=== PATIENT | female | born 1975 | race Caucasian/White ===

== ENCOUNTER 2020-09-29 22:00 | Emergency (ER) | payer BC ==
--- NOTE | 2020-09-29 23:12 | EDM.PDOC ---
ED HPI GENERAL MEDICAL PROBLEM - General Chief Complaint: Respiratory Problem Stated Complaint: COVID+ TROUBLE BREATHING Time Seen by Provider: 09/29/20 23:07 - History of Present Illness INITIAL COMMENTS - FREE TEXT/NARRATIVE: 45-year-old female presents to the emergency room because she is having increasing difficulty breathing and increasing cough. She is Covid positive. Patient was evaluated in the walk-in clinic today found to be Covid positive. They did contact us about monoclonal therapy however this is only available during business hours so she needs to wait until tomorrow for this she understands this. The patient has had worsening cough over the last week. She thought she was getting better but the last couple days she is doing quite a bit worse the cough is more frequent. At times she is noted her home O2 monitor has been in the 80s but this is for brief periods of time. She was maintaining good O2 saturation at the clinic and here in the emergency room she is maintaining good O2 saturation. During my initial evaluation she had a very frequent cough and was maintaining saturations 94 to 95%. She does not have gastrointestinal symptoms hers are predominantly respiratory at this time. His case is complicated as she has non-Hodgkin's lymphoma. She is receiving chemotherapy her most recent dose has been on put on hold because of this illness. Generalized Pain Score (Numeric/FACES): 8 - Related Data Allergies Allergy/AdvReac Type Severity Reaction Status Date / Time No Known Allergies Allergy Verified 09/29/20 22:21 Home Meds: Home Meds Calcium Carbonate [Calcium] 600 mg PO DAILY 09/29/20 [History] Omeprazole Magnesium [Prilosec Otc] 20 mg PO DAILY 09/29/20 [History] hydroCHLOROthiazide [Hydrochlorothiazide] 25 mg PO DAILY 09/29/20 [History] Potassium Chloride [Klor-Con M20] 40 meq PO BID #10 tab.er 09/30/20 [Rx] Past Medical History Cardiovascular History: Reports: Hypertension Gastrointestinal History: Reports: GERD, Other (See Below) Other Gastrointestinal History: gastric sleeve Oncologic (Cancer) History: Reports: Non-Hodgkin's Lymphoma, Other (See Below) Other Oncologic History: has a port - Past Surgical History GI Surgical History: Reports: Cholecystectomy Female Surgical History: Reports: Section Social & Family History - Tobacco Use Tobacco Use Status *Q: Never Tobacco User - Caffeine Use Caffeine Use: Reports: Coffee - Recreational Drug Use Recreational Drug Use: No ED ROS GENERAL - Review of Systems Review Of Systems: See Below Constitutional: Reports: No Symptoms HEENT: Reports: Rhinitis (Mild) Respiratory: Reports: Shortness of Breath, Cough. Denies: Wheezing, Sputum, Hemoptysis Cardiovascular: Denies: Chest Pain, Dyspnea on Exertion, Edema Endocrine: Reports: No Symptoms GI/Abdominal: Reports: No Symptoms. Denies: Abdominal Pain, Nausea, Vomiting : Reports: No Symptoms Musculoskeletal: Reports: Other (Mild achiness) Skin: Reports: No Symptoms Neurological: Reports: No Symptoms Psychiatric: Reports: No Symptoms Hematologic/Lymphatic: Reports: No Symptoms Immunologic: Reports: No Symptoms ED EXAM, GENERAL - Physical Exam Exam: See Below Exam Limited By: No Limitations General Appearance: Alert, No Apparent Distress Eye Exam: Bilateral Eye: Normal Inspection Ears: Normal External Exam, Normal Canal, Hearing Grossly Normal, Normal TMs Nose: Normal Inspection, Normal Mucosa, No Blood Throat/Mouth: Normal Inspection, Normal Lips, Normal Teeth, Normal Gums, Normal Oropharynx, Normal Voice, No Airway Compromise Head: Atraumatic, Normocephalic Neck: Normal Inspection, Supple, Non-Tender, Full Range of Motion. No: Lymphadenopathy (L), Lymphadenopathy (R) Respiratory/Chest: No Respiratory Distress, Lungs Clear, Normal Breath Sounds Cardiovascular: Regular Rate, Rhythm, No Edema, No Murmur GI/Abdominal: Normal Bowel Sounds, Soft, Non-Tender Back Exam: Normal Inspection, Full Range of Motion. No: CVA Tenderness (L), CVA Tenderness (R) Extremities: Normal Inspection, No Pedal Edema Neurological: Alert, Oriented, Normal Cognition Course - Vital Signs Last Recorded V/S: Last Vital Signs Temp 37.9 C 09/29/20 22:17 Pulse 115 H 09/29/20 22:17 Resp 36 H 09/29/20 22:17 BP 108/83 09/29/20 22:17 Pulse Ox 92 L 09/29/20 22:17 - Orders/Labs/Meds Labs: Laboratory Tests 09/30/20 09/30/20 09/30/20 Range/Units 00:30 00:30 00:30 WBC 4.47 (3.98-10.04) K/mm3 RBC 5.03 (3.98-5.22) M/mm3 Hgb 14.0 (11.2-15.7) gm/dl Hct 41.6 (34.1-44.9) % MCV 82.7 (79.4-94.8) fl MCH 27.8 (25.6-32.2) pg MCHC 33.7 (32.2-35.5) g/dl RDW Std Deviation 38.5 (36.4-46.3) fL Plt Count 201 (182-369) K/mm3 MPV 11.3 (9.4-12.3) fl Neutrophils % (Manual) 72 H (40-60) % Band Neutrophils % 3 (0-10) % Lymphocytes % (Manual) 18 L (20-40) % Atypical Lymphs % 0 % Monocytes % (Manual) 7 (2-10) % Eosinophils % (Manual) 0 L (0.7-5.8) % Basophils % (Manual) 0 L (0.1-1.2) Platelet Estimate Adequate RBC Morph Comment Normal D-Dimer, Quantitative 0.49 (0.19-0.50) mg/L Sodium 138 (136-145) mEq/L Potassium 2.5 L (3.5-5.1) mEq/L Chloride 99 (98-107) mEq/L Carbon Dioxide 25 (21-32) mEq/L Anion Gap 16.5 H (5-15) BUN 22 H (7-18) mg/dL Creatinine 1.1 H (0.55-1.02) mg/dL Est Cr Clr Drug Dosing 61.48 mL/min Estimated GFR (MDRD) 53 (>60) mL/min BUN/Creatinine Ratio 20.0 H (14-18) Glucose 108 H (74-106) mg/dL Calcium 8.9 (8.5-10.1) mg/dL Ferritin (8-252) ng/ml Total Bilirubin 0.8 (0.2-1.0) mg/dL AST 32 (15-37) U/L ALT 25 (14-59) U/L Alkaline Phosphatase 95 (46-116) U/L C-Reactive Protein 1.2 H* (<1.0) mg/dL Total Protein 7.5 (6.4-8.2) g/dl Albumin 3.7 (3.4-5.0) g/dl Globulin 3.8 gm/dL Albumin/Globulin Ratio 1.0 (1-2) 09/30/20 Range/Units 00:30 WBC (3.98-10.04) K/mm3 RBC (3.98-5.22) M/mm3 Hgb (11.2-15.7) gm/dl Hct (34.1-44.9) % MCV (79.4-94.8) fl MCH (25.6-32.2) pg MCHC (32.2-35.5) g/dl RDW Std Deviation (36.4-46.3) fL Plt Count (182-369) K/mm3 MPV (9.4-12.3) fl Neutrophils % (Manual) (40-60) % Band Neutrophils % (0-10) % Lymphocytes % (Manual) (20-40) % Atypical Lymphs % % Monocytes % (Manual) (2-10) % Eosinophils % (Manual) (0.7-5.8) % Basophils % (Manual) (0.1-1.2) Platelet Estimate RBC Morph Comment D-Dimer, Quantitative (0.19-0.50) mg/L Sodium (136-145) mEq/L Potassium (3.5-5.1) mEq/L Chloride (98-107) mEq/L Carbon Dioxide (21-32) mEq/L Anion Gap (5-15) BUN (7-18) mg/dL Creatinine (0.55-1.02) mg/dL Est Cr Clr Drug Dosing mL/min Estimated GFR (MDRD) (>60) mL/min BUN/Creatinine Ratio (14-18) Glucose (74-106) mg/dL Calcium (8.5-10.1) mg/dL Ferritin 358 H (8-252) ng/ml Total Bilirubin (0.2-1.0) mg/dL AST (15-37) U/L ALT (14-59) U/L Alkaline Phosphatase (46-116) U/L C-Reactive Protein (<1.0) mg/dL Total Protein (6.4-8.2) g/dl Albumin (3.4-5.0) g/dl Globulin gm/dL Albumin/Globulin Ratio (1-2) Meds: Medications Discontinued Medications Generic Name Dose Route Start Last Admin Trade Name Freq PRN Reason Stop Dose Admin Heparin Sodium (Porcine) 500 units 09/30/20 01:17 Heparin Sodium 100 Units/Ml 5 Ml Syringe FLUSH 09/30/20 01:18 NOW STA Magnesium Oxide 400 mg 09/30/20 01:38 Magnesium Oxide 400 Mg Tab PO 09/30/20 01:39 ONETIME ONE Potassium Chloride 40 meq 09/30/20 01:37 Potassium Chloride 20 Meq Tab.Er PO 09/30/20 01:38 ONETIME ONE - Re-Assessments/Exams Free Text/Narrative Re-Assessment/Exam: 09/30/20 01:41 Chest x-ray done today at [facility] results reviewed and are consistent with Covid. Laboratory evaluation at this evening here in the emergency room are consistent with Covid of note is her potassium is 2.5 this will be addressed here. Her labs suggest some mild dehydration. Here in the emergency department she has maintained good O2 saturation in the mid 90s unless there was artifact in the equipment. The patient is scheduled already for outpatient Bamlanivimab/Etesevimab, this was scheduled to the [facility]. We will send a prescription for potassium chloride to her pharmacy and the patient agrees to take as directed she also agrees to return to the emergency room with any questions or problems. Departure - Departure Time of Disposition: 01:45 Disposition: Home, Self-Care 01 Clinical Impression: COVID-19, Pneumonia due to COVID-19 virus - Discharge Information Prescriptions: Potassium Chloride [Klor-Con M20] 40 meq PO BID #10 tab.er Instructions: Prevent the Spread of COVID-19 if You Are Sick - [facility] Referrals: Patricia Snider PA-C [Primary Care Provider] - Forms: ED Department Discharge Additional Instructions: Return to the emergency room with any questions problems or concerning symptoms. If you feel like you are getting more short of breath do not hesitate to be reevaluated. Return tomorrow as scheduled for the monoclonal antibody therapy. You have been started on potassium chloride. The prescription for this has been sent to your pharmacy electronically. You should take 40 mEq twice daily for a total of 5 doses. I also recommend taking magnesium oxide 400 mg, this is [id number] take 1 daily while taking the potassium. Follow-up with your regular healthcare providers as scheduled. Sepsis Event Note (ED) - Evaluation Sepsis Screening Result: No Definite Risk - Focused Exam Vital Signs: Vital Signs Temp Pulse Resp BP Pulse Ox 09/29/20 22:17 37.9 C 115 H 36 H 108/83 92 L
[2020-09-30] MEDS ORDERED: Potassium Chloride 20 MEQ Tab.ER PO ONE (01:37)
[2020-09-30] MEDS ORDERED: Magnesium Oxide 400 MG Tab PO ONE (01:38)
== END 2020-09-30 01:56 | disposition home or self-care (01) ==
LOC: JD.ED 22:00
DX: U07.1 COVID-19 (principal); J12.82 Pneumonia due to coronavirus disease 2019; I10 Essential (primary) hypertension; K21.9 Gastro-esophageal reflux disease without esophagitis; Z79.899 Other long term (current) drug therapy
CPT/HCPCS: 36415; 80053; 82728; 85007; 85027; 85379; 86140; 99284; J1642

== ENCOUNTER 2020-11-02 20:57 | Inpatient (IN) | payer BC ==
--- NOTE | 2020-11-02 22:06 | EDM.PDOC ---
ED HPI GENERAL MEDICAL PROBLEM - General Chief Complaint: Respiratory Problem Stated Complaint: COUGH CHEST CONGESTION Time Seen by Provider: 11/02/20 22:02 Source of Information: Reports: Patient History Limitations: Reports: No Limitations - History of Present Illness INITIAL COMMENTS - FREE TEXT/NARRATIVE: 45-year-old female presents to the ED with acute onset of fever chills x 6 days ago. Chills worse the last 48 hours. Associated nonproductive cough. Patient was seen at the [facility]in [facility] and apparently 2 view chest x-ray revealed a left lower lobar pneumonia and right upper lobe pneumonia. They were supposed to send the x-rays to our facility but they have not arrived. Patient had COVID-19 illness the end of September of this year. She states that me did make her short of breath with a cough that took about 6 weeks to improve. She still remains fatigued. She did have a left lower lobe and right middle lobe infiltrate on her chest x-ray at that time. Patient has had very little to eat or drink in the last day and a half due to loss of appetite. Of note the patient is receiving chemotherapy on an every 2 monthly basis for non-Hodgkin's lymphoma since 2019. December will be her last chemotherapy dose. Patient has an infusion port right upper anterior chest. She denies any diarrhea. Mild nausea without vomiting more . Loss of appetite similar to COVID-19 illness. She has been taking Tylenol intermittently for fever relief. Onset: Gradual Onset Date: 10/27/20 (Started with cough chest congestion 6 days ago. Fever chills over the last 36 to 48 hours.) Duration: Day(s):, Getting Worse Location: Reports: Chest (Paroxysmal minimally productive cough. Associated fever chills loss of appetite) Quality: Reports: Other Severity: Moderate (Shortness of breath feeling.) Improves with: Reports: None Worsens with: Reports: Movement Context: Reports: Other (Potentially immunocompromise due to receiving chemotherapy every 2 months for non-Hodgkin's lymphoma). Denies: Activity (Increased dyspnea on exertion.), Exercise, Lifting, Sick Contact, Trauma Associated Symptoms: Reports: Cough, cough w sputum, Fever/Chills, Loss of Appetite, Malaise, Shortness of Breath, Weakness (Neurolysed weakness). Denies: Confusion, Chest Pain, Diaphoresis, Headaches (Fever chills and rigors over the last 48 hours.), Nausea/Vomiting, Rash, Seizure, Syncope Treatments [employer]: Reports: Acetaminophen Chest Pain Score (Numeric/FACES): 4 - Related Data Allergies Allergy/AdvReac Type Severity Reaction Status Date / Time No Known Allergies Allergy Verified 11/02/20 21:18 Home Meds: Home Meds Calcium Carbonate [Calcium] 600 mg PO DAILY 09/29/20 [History] Omeprazole Magnesium [Prilosec Otc] 20 mg PO DAILY 09/29/20 [History] hydroCHLOROthiazide [Hydrochlorothiazide] 25 mg PO DAILY 09/29/20 [History] Biotin 5 mg PO DAILY 11/02/20 [History] Acetaminophen [Tylenol Extra Strength] 1,000 mg PO Q6HR PRN 11/03/20 [History] Past Medical History Cardiovascular History: Reports: Hypertension Gastrointestinal History: Reports: GERD, Other (See Below) Other Gastrointestinal History: gastric sleeve Endocrine/Metabolic History: Reports: Obesity/BMI 30+ Oncologic (Cancer) History: Reports: Non-Hodgkin's Lymphoma (Diagnosed in early 2018. She is on a 2-year chemotherapy protocol currently receiving chemotherapy every 2 months with third last dose of chemotherapy due in early December.), Other (See Below) Other Oncologic History: has a port - Past Surgical History GI Surgical History: Reports: Cholecystectomy Female Surgical History: Reports: Section - History Comment History Comment: Patient had COVID-19 illness the end of September 2020. Apparently identified to have pneumonia with sats as low as 88%. She did receive monoclonal antibody therapy through our ER and was discharged to home. She states within 3 to 4 days of receiving the monoclonal antibody she started to feel better and never was admitted to the hospital due to Covid. She felt the fatigue last a good 6 weeks. Cough lasted about 10 days. Social & Family History - Tobacco Use Tobacco Use Status *Q: Never Tobacco User - Caffeine Use Caffeine Use: Reports: Coffee - Recreational Drug Use Recreational Drug Use: No - Living Situation & Occupation Living situation: Reports: Occupation: Unemployed ED ROS GENERAL - Review of Systems Review Of Systems: See Below Constitutional: Reports: Fever, Chills, Malaise, Weakness, Fatigue, Decreased Appetite HEENT: Reports: No Symptoms Respiratory: Reports: Shortness of Breath, Cough, Sputum. Denies: Wheezing, Pleuritic Chest Pain, Hemoptysis (Minimal sputum production. Has not looked at the color) Cardiovascular: Reports: Blood Pressure Problem, Dyspnea on Exertion. Denies: Chest Pain, Claudication, Edema, Lightheadedness, Orthopnea (Has mild hypertension.), Palpitations Endocrine: Reports: Fatigue GI/Abdominal: Reports: Decreased Appetite. Denies: Constipation, Diarrhea : Reports: No Symptoms Musculoskeletal: Reports: No Symptoms Skin: Reports: No Symptoms Neurological: Reports: No Symptoms Psychiatric: Reports: No Symptoms Hematologic/Lymphatic: Reports: No Symptoms Immunologic: Reports: No Symptoms ED EXAM, GENERAL - Physical Exam Exam: See Below Exam Limited By: No Limitations General Appearance: Alert, WD/WN, No Apparent Distress, Other (Patient is very warm to palpation. Nurses recorded temperature of 39.2 degrees. Heart rate 132 sinus tachycardia on the monitor. Respiratory of 18 with O2 sats of 95 to 96% room air. BP mildly elevated at 151/ 103. Subsequent blood pressure recorded to 150/70) Eye Exam: Bilateral Eye: Normal Inspection (No scleral icterus or blepharal pallor.), PERRL Ears: Normal External Exam, Normal TMs Throat/Mouth: Normal Inspection, Normal Lips, Normal Teeth, Normal Oropharynx Head: Atraumatic, Normocephalic Neck: Normal Inspection, Supple, Non-Tender, Full Range of Motion. No: Lymphadenopathy (L), Lymphadenopathy (R) Respiratory/Chest: No Respiratory Distress, Lungs Clear, Normal Breath Sounds, No Accessory Muscle Use Cardiovascular: Normal Peripheral Pulses, No Murmur, No Rub, Tachycardia (Sinus tachycardia the monitor at 132.) Peripheral Pulses: 3+: Carotid (L), Carotid (R), Posterior Tibial (L), Posterior Tibial (R), Dorsalis Pedis (L), Dorsalis Pedis (R) GI/Abdominal: Normal Bowel Sounds, Soft, Non-Tender, No Organomegaly, No Distention, No Mass, Pelvis Stable, Other (Patient has multiple surgical scars. x2. She had an open cholecystectomy with injury to her common bile duct. This required open midline laparotomy to repair. No associated development of pancreatitis with this.) Back Exam: Normal Inspection, Full Range of Motion. No: CVA Tenderness (L), CVA Tenderness (R) Extremities: Normal Inspection, Normal Range of Motion, Non-Tender, No Pedal Edema Neurological: Alert, Oriented, CN II-XII Intact, Normal Cognition Psychiatric: Normal Affect, Normal Mood Skin Exam: Warm, Dry, Intact, Normal Color, No Rash #1 Interpretation EKG Date: 11/02/20 Time: 10:14 Rhythm: Other (Sinus tachycardia) Rate (Beats/Min): 107 [place]: Normal P-Wave: Present QRS: Normal ST-T: Other (Diffuse early repolarization pattern) QT: Normal EKG Interpretation Comments: Sinus tachycardia otherwise normal ECG Course - Vital Signs Last Recorded V/S: Last Vital Signs Temp 36.5 C 11/03/20 02:30 Pulse 91 11/03/20 02:30 Resp 16 11/03/20 02:30 BP 119/87 11/03/20 02:30 Pulse Ox 94 L 11/03/20 02:30 - Orders/Labs/Meds Orders: Active Orders 24 hr Category Date Time Status Admission Status [Patient Status] [ADT] Routine ADT 11/03/20 02:00 Active Chest 2V [CR] Stat Exams 11/02/20 22:03 Stop Req CULTURE BLOOD [BC] Stat Lab 11/02/20 22:25 Received CULTURE BLOOD [BC] Stat Lab 11/02/20 22:25 Received Blood Culture x2 Reflex Set [OM.PC] Stat Oth 11/02/20 22:05 Ordered Medication Orders Dextrose/Sodium Chloride (Dextrose 5%-Normal Saline) 1,000 mls @ 100 mls/hr IV ASDIRECTED [facility] Labs: Laboratory Tests 11/02/20 11/02/20 11/02/20 Range/Units 22:25 22:25 22:25 WBC 5.40 (3.98-10.04) K/mm3 RBC 4.10 (3.98-5.22) M/mm3 Hgb 11.7 D (11.2-15.7) gm/dl Hct 36.0 (34.1-44.9) % MCV 87.8 D (79.4-94.8) fl MCH 28.5 (25.6-32.2) pg MCHC 32.5 (32.2-35.5) g/dl RDW Std Deviation 43.5 (36.4-46.3) fL Plt Count 236 (182-369) K/mm3 MPV 11.4 (9.4-12.3) fl Neutrophils % (Manual) 56 (40-60) % Band Neutrophils % 16 H (0-10) % Lymphocytes % (Manual) 22 (20-40) % Atypical Lymphs % 0 % Monocytes % (Manual) 5 (2-10) % Eosinophils % (Manual) 0 L (0.7-5.8) % Basophils % (Manual) 1 (0.1-1.2) Platelet Estimate Adequate RBC Morph Comment Normal PT 11.1 (9.7-12.0) SECONDS INR 1.04 APTT 28.5 (21.7-31.4) SECONDS D-Dimer, Quantitative (0.19-0.50) mg/L Sodium 134 L (136-145) mEq/L Potassium 3.1 L (3.5-5.1) mEq/L Chloride 99 (98-107) mEq/L Carbon Dioxide 24 (21-32) mEq/L Anion Gap 14.1 (5-15) BUN 12 (7-18) mg/dL Creatinine 1.0 (0.55-1.02) mg/dL Est Cr Clr Drug Dosing 67.63 mL/min Estimated GFR (MDRD) 59 (>60) mL/min BUN/Creatinine Ratio 12.0 L (14-18) Glucose 98 (70-99) mg/dL Lactic Acid (0.4-2.0) mmol/L Calcium 8.3 L (8.5-10.1) mg/dL Magnesium 1.7 L (1.8-2.4) mg/dL Total Bilirubin 0.6 (0.2-1.0) mg/dL AST 21 (15-37) U/L ALT 25 (14-59) U/L Alkaline Phosphatase 88 (46-116) U/L CK-MB (CK-2) 0.6 (0-3.6) ng/ml Troponin I < 0.017 (0.00-0.056) ng/mL NT-Pro-B Natriuret Pep (0-125) pg/mL Total Protein 6.9 (6.4-8.2) g/dl Albumin 3.5 (3.4-5.0) g/dl Globulin 3.4 gm/dL Albumin/Globulin Ratio 1.0 (1-2) Urine Color (Yellow) Urine Appearance (Clear) Urine pH (5.0-8.0) Ur Specific Custer (1.005-1.030) Urine Protein (Negative) Urine Glucose (UA) (Negative) Urine Ketones (Negative) Urine Occult Blood (Negative) Urine Nitrite (Negative) Urine Bilirubin (Negative) Urine Urobilinogen (0.2-1.0) Ur Leukocyte Esterase (Negative) Urine RBC (0-5) /hpf Urine WBC (0-5) /hpf Ur Squamous Epith Cells (0-5) /hpf Urine Bacteria (FEW) /hpf Urine Mucus (FEW) /hpf 11/02/20 11/02/20 11/02/20 Range/Units 22:25 22:25 22:25 WBC (3.98-10.04) K/mm3 RBC (3.98-5.22) M/mm3 Hgb (11.2-15.7) gm/dl Hct (34.1-44.9) % MCV (79.4-94.8) fl MCH (25.6-32.2) pg MCHC (32.2-35.5) g/dl RDW Std Deviation (36.4-46.3) fL Plt Count (182-369) K/mm3 MPV (9.4-12.3) fl Neutrophils % (Manual) (40-60) % Band Neutrophils % (0-10) % Lymphocytes % (Manual) (20-40) % Atypical Lymphs % % Monocytes % (Manual) (2-10) % Eosinophils % (Manual) (0.7-5.8) % Basophils % (Manual) (0.1-1.2) Platelet Estimate RBC Morph Comment PT (9.7-12.0) SECONDS INR APTT (21.7-31.4) SECONDS D-Dimer, Quantitative 0.38 (0.19-0.50) mg/L Sodium (136-145) mEq/L Potassium (3.5-5.1) mEq/L Chloride (98-107) mEq/L Carbon Dioxide (21-32) mEq/L Anion Gap (5-15) BUN (7-18) mg/dL Creatinine (0.55-1.02) mg/dL Est Cr Clr Drug Dosing mL/min Estimated GFR (MDRD) (>60) mL/min BUN/Creatinine Ratio (14-18) Glucose (70-99) mg/dL Lactic Acid 0.6 (0.4-2.0) mmol/L Calcium (8.5-10.1) mg/dL Magnesium (1.8-2.4) mg/dL Total Bilirubin (0.2-1.0) mg/dL AST (15-37) U/L ALT (14-59) U/L Alkaline Phosphatase (46-116) U/L CK-MB (CK-2) (0-3.6) ng/ml Troponin I (0.00-0.056) ng/mL NT-Pro-B Natriuret Pep 86 (0-125) pg/mL Total Protein (6.4-8.2) g/dl Albumin (3.4-5.0) g/dl Globulin gm/dL Albumin/Globulin Ratio (1-2) Urine Color (Yellow) Urine Appearance (Clear) Urine pH (5.0-8.0) Ur Specific C[place] (1.005-1.030) Urine Protein (Negative) Urine Glucose (UA) (Negative) Urine Ketones (Negative) Urine Occult Blood (Negative) Urine Nitrite (Negative) Urine Bilirubin (Negative) Urine Urobilinogen (0.2-1.0) Ur Leukocyte Esterase (Negative) Urine RBC (0-5) /hpf Urine WBC (0-5) /hpf Ur Squamous Epith Cells (0-5) /hpf Urine Bacteria (FEW) /hpf Urine Mucus (FEW) /hpf 11/03/20 Range/Units 02:04 WBC (3.98-10.04) K/mm3 RBC (3.98-5.22) M/mm3 Hgb (11.2-15.7) gm/dl Hct (34.1-44.9) % MCV (79.4-94.8) fl MCH (25.6-32.2) pg MCHC (32.2-35.5) g/dl RDW Std Deviation (36.4-46.3) fL Plt Count (182-369) K/mm3 MPV (9.4-12.3) fl Neutrophils % (Manual) (40-60) % Band Neutrophils % (0-10) % Lymphocytes % (Manual) (20-40) % Atypical Lymphs % % Monocytes % (Manual) (2-10) % Eosinophils % (Manual) (0.7-5.8) % Basophils % (Manual) (0.1-1.2) Platelet Estimate RBC Morph Comment PT (9.7-12.0) SECONDS INR APTT (21.7-31.4) SECONDS D-Dimer, Quantitative (0.19-0.50) mg/L Sodium (136-145) mEq/L Potassium (3.5-5.1) mEq/L Chloride (98-107) mEq/L Carbon Dioxide (21-32) mEq/L Anion Gap (5-15) BUN (7-18) mg/dL Creatinine (0.55-1.02) mg/dL Est Cr Clr Drug Dosing mL/min Estimated GFR (MDRD) (>60) mL/min BUN/Creatinine Ratio (14-18) Glucose (70-99) mg/dL Lactic Acid (0.4-2.0) mmol/L Calcium (8.5-10.1) mg/dL Magnesium (1.8-2.4) mg/dL Total Bilirubin (0.2-1.0) mg/dL AST (15-37) U/L ALT (14-59) U/L Alkaline Phosphatase (46-116) U/L CK-MB (CK-2) (0-3.6) ng/ml Troponin I (0.00-0.056) ng/mL NT-Pro-B Natriuret Pep (0-125) pg/mL Total Protein (6.4-8.2) g/dl Albumin (3.4-5.0) g/dl Globulin gm/dL Albumin/Globulin Ratio (1-2) Urine Color Yellow (Yellow) Urine Appearance Clear (Clear) Urine pH 6.5 (5.0-8.0) Ur Specific [place] 1.010 (1.005-1.030) Urine Protein Negative (Negative) Urine Glucose (UA) Negative (Negative) Urine Ketones Negative (Negative) Urine Occult Blood Negative (Negative) Urine Nitrite Negative (Negative) Urine Bilirubin Negative (Negative) Urine Urobilinogen 0.2 (0.2-1.0) Ur Leukocyte Esterase Trace H (Negative) Urine RBC Not seen (0-5) /hpf Urine WBC 0-5 (0-5) /hpf Ur Squamous Epith Cells Not seen (0-5) /hpf Urine Bacteria Rare (FEW) /hpf Urine Mucus Rare (FEW) /hpf Meds: Medications Generic Name Dose Route Start Last Admin Trade Name Freq PRN Reason Stop Dose Admin Dextrose/Sodium Chloride 1,000 mls @ 100 mls/hr 11/03/20 04:00 Dextrose 5%-Normal Saline IV ASDIRECTED OWEN Discontinued Medications Generic Name Dose Route Start Last Admin Trade Name Satish PRN Reason Stop Dose Admin Acetaminophen 975 mg 11/02/20 22:22 11/02/20 23:00 Acetaminophen 325 Mg Tab PO 11/02/20 22:23 975 mg ONETIME ONE Administration Dextrose/Sodium Chloride 1,000 mls @ 500 mls/hr 11/02/20 22:15 11/02/20 23:01 Dextrose 5%-Normal Saline IV 500 mls/hr ASDIRECTED OWEN Administration Ceftriaxone Sodium 2 gm/ 100 mls @ 200 mls/hr 11/02/20 22:31 11/02/20 23:01 Sodium Chloride IV 11/02/20 23:00 200 mls/hr ONETIME ONE Administration Azithromycin 500 mg/ Sodium 250 mls @ 250 mls/hr 11/03/20 00:40 11/03/20 00:55 Chloride IV 11/03/20 01:39 250 mls/hr ONETIME ONE Administration - Radiology Interpretation Free Text/Narrative:: 45-year-old female presents to the ED after being seen at the walk-in clinic at [facility] this evening. Patient reports feeling ill with increased dyspnea and mild nonproductive cough starting last , October 27. She has developed high fever with chills and rigors over the last 36 to 48 hours with loss of appetite. Patient is receiving chemotherapy on a every 2 monthly basis for a non-Hodgkin's lymphoma for the last 22 months. She is due for her next dose of chemotherapy in early December which will be her last of a 2-year protocol. Patient had COVID-19 illness diagnosed the end of September 2020. She states it took at least 6 weeks to recover from this from the shortness of breath and did have evidence of viral pneumonia on x-ray at that time. She felt that she was improved over the last 2 weeks until symptoms occurred a week ago. Associated overwhelming fatigue. Appetite is remained poor since time of development of Covid. Patient had a two-view chest x-ray carried out at the walk-in clinic which revealed infiltrates right lower lobe and left upper lobe compatible with pneumonia. Patient is febrile here. She will receive Tylenol 9 7 5 mg p.o. for fever relief. She will have a septic work-up . Antibiotics will be started as soon as blood cultures x2 have been obtained. Plan will be to give her Rocephin 2 g IV. - Re-Assessments/Exams Free Text/Narrative Re-Assessment/Exam: 11/02/20 23:31 Total white count is normal at 5.40. The differential shows 56% neutrophils but 16 percent bands cells. Hemoglobin is 11.7 with hematocrit of 36.0. Platelet count is normal at 236,000. PT is 11.1 with a INR of 1.04 PTT is 28.5 and D-dimer is normal at 0.38. Lactic acid was 0.6 BNP was 86. 11/02/20 23:45 Sodium is 134 with potassium low at 3.1. Chloride 99 with a bicarb of 24. Anion gap is 14.1. BUN is 12 with a creatinine of 1.0 and a GFR greater than 59. Glucose is 98. Lactic acid 0.6. Calcium 8.3 with a magnesium slightly low at 1.7. Liver function normal. CK-MB fraction is 0.6 with a troponin I of less than 0.017. BNP is normal at 86. Total protein 6.9 with an albumin fraction of 3.5 11/03/20 00:51. X-ray tech was able to obtain the x-rays from [facility] through the PACS system by [facility] in [place]. She has a left upper lobe hazy infiltrate suggesting pneumonia and a right lower lobar infiltrate compatible with pneumonia. The patient will therefore receive Zithromax 500 mg IV in addition to Rocephin which she has already recieved.. I did speak with the on-call hospitalist and he is excepted admission to the med surgery floor. I will therefore write bridge orders and get her admitted to the hospital. 11/03/20 01:42 Urinalysis was normal with only a trace of leukocyte esterase evident. No white cells on the micro. Patient is still awaiting a bed on the med surgery floor. Zithromax infusion has been completed in the ED. Departure - Departure Time of Disposition: 02:30 Disposition: Admitted As Inpatient 64 Condition: Fair Clinical Impression: Non-Hodgkin's lymphoma in remission, Acute febrile illness Bilateral pneumonia Qualifiers: Pneumonia type: due to unspecified organism Lung location: lower lobe of lung Qualified Code(s): J18.9 - Pneumonia, unspecified organism - Discharge Information Sepsis Event Note (ED) - Evaluation Sepsis Screening Result: No Definite Risk - Focused Exam Vital Signs: Vital Signs Temp Pulse Resp BP Pulse Ox 11/02/20 21:14 39.2 C H 132 H 18 151/103 H 95 - My Orders Last 24 Hours: My Active Orders 11/02/20 22:03 Chest 2V [CR] Stat 11/02/20 22:05 Blood Culture x2 Reflex Set [OM.PC] Stat 11/02/20 22:25 CULTURE BLOOD [BC] Stat CULTURE BLOOD [BC] Stat 11/03/20 02:00 Admission Status [Patient Status] [ADT] Routine - Assessment/Plan Last 24 Hours: My Active Orders 11/02/20 22:03 Chest 2V [CR] Stat 11/02/20 22:05 Blood Culture x2 Reflex Set [OM.PC] Stat 11/02/20 22:25 CULTURE BLOOD [BC] Stat CULTURE BLOOD [BC] Stat 11/03/20 02:00 Admission Status [Patient Status] [ADT] Routine
[2020-11-02] MEDS ORDERED: Dextrose 5%-0.9% NaCl 1,000 ML IV SCH (22:15)
[2020-11-02] MEDS ORDERED: Acetaminophen 325 MG Tab PO ONE (22:22)
[2020-11-02] MEDS ORDERED: cefTRIAXone 2 GM in Sodium Chloride 0.9% 100 ML IV ONE (22:31)
[2020-11-03] MEDS ORDERED: Azithromycin 500 MG in Sodium Chloride 0.9% 250 ML IV ONE (00:40)
[2020-11-03] MEDS ORDERED: Dextrose 5%-0.9% NaCl 1,000 ML IV SCH (04:00)
[2020-11-03] MEDS ORDERED: Docusate Sodium 100 MG Cap PO PRN (07:46)
[2020-11-03] MEDS ORDERED: Albuterol/Ipratropium 3.0-0.5 MG/3 ML Neb Soln NEB PRN (07:46)
[2020-11-03] MEDS ORDERED: Ondansetron 4 MG/2 ML SDV IV PRN (07:46)
--- NOTE | 2020-11-03 07:57 | PCM.HP.2 ---
H&P History of Present Illness - General Date of Service: 11/03/20 Admit Problem/Dx: Admission Diagnosis/Problem Admission Diagnosis/Problem Bilateral pneumonia Source of Information: Patient History Limitations: Reports: No Limitations - History of Present Illness Initial Comments - Free Text/Narative: Patient is a 45-year-old female with a past medical history as listed below who presents to the [facility] emergency department due to a chief complaint of shortness of breath and cough. The patient is a non-Hodgkin lymphoma patient receiving steroids and Rituxan every 2 months. She presented to the walk-in clinic across the street yesterday due to 5 days of feeling unwell. She has had a worsening cough. No sputum production. No hematemesis. She had a tempera ture as high as 104.5 degrees within the past 5 days and has had transient fever in general. She has had a headache transiently. All has been working to break her fever as well as headaches. Denies any chest pain, pleurisy or chest pressure. No nausea or vomiting. No bowel habit changes. No difficulties with voiding. No recent sick contacts. No recent travel. Prior COVID-19 infection noted this past September without significant complication. Yesterday's evaluation in the clinic noted bilateral multifocal pneumonia. The patient was then referred to the emergency department. The patient was not requiring supplemental oxygen and did not appear toxic. It was recommended that the patient be admitted for IV antibiotics. At current time, she states that the cough is the most nagging symptom for her. She denies any loss of appetite currently. This was an issue over the past 5 days at home. Has breakfast and is eating this morning. Significant overnight events. Patient is hopeful for discharge within the next 24 to 48 hours. Chest Pain Score (Numeric/FACES): 4 - Related Data Allergies/Adverse Reactions: Allergies Allergy/AdvReac Type Severity Reaction Status Date / Time No Known Allergies Allergy Verified 11/02/20 21:18 Home Medications: Home Meds Calcium Carbonate [Calcium] 600 mg PO DAILY 09/29/20 [History] Omeprazole Magnesium [Prilosec Otc] 20 mg PO DAILY 09/29/20 [History] hydroCHLOROthiazide [Hydrochlorothiazide] 25 mg PO DAILY 09/29/20 [History] Biotin 5 mg PO DAILY 11/02/20 [History] Acetaminophen [Tylenol Extra Strength] 1,000 mg PO Q6HR PRN 11/03/20 [History] Past Medical History Cardiovascular History: Reports: Hypertension Gastrointestinal History: Reports: GERD, Other (See Below) Other Gastrointestinal History: gastric sleeve Endocrine/Metabolic History: Reports: Obesity/BMI 30+ Hematologic History: Reports: Blood Transfusion(s) Oncologic (Cancer) History: Reports: Non-Hodgkin's Lymphoma, Other (See Below) Other Oncologic History: has a port - Infectious Disease History Infectious Disease History: Reports: Chicken Pox, Novel Coronavirus - Past Surgical History Cardiovascular Surgical History: Reports: None GI Surgical History: Reports: Cholecystectomy Female Surgical History: Reports: Section Oncologic Surgical History: Reports: None - History Comment History Comment: Patient had COVID-19 illness the end of September 2020. Apparently identified to have pneumonia with sats as low as 88%. She did receive monoclonal antibody therapy through our ER and was discharged to home. She states within 3 to 4 days of receiving the monoclonal antibody she started to feel better and never was admitted to the hospital due to Covid. She felt the fatigue last a good 6 weeks. Cough lasted about 10 days. Social & Family History - Family History OBGYN: Reports: Other (See Below) Other OBGYN Family History: Mother has endometrial cancer; recently diagnosed. - Tobacco Use Tobacco Use Status *Q: Never Tobacco User Tobacco Use Within Last Twelve Months: No Second Hand Smoke Exposure: No - Caffeine Use Caffeine Use: Reports: Coffee - Alcohol Use Days Per Week of Alcohol Use: 1 Number of Drinks Per Day: 3 Total Drinks Per Week: 3 Date of Last Drink: 10/26/20 - Recreational Drug Use Recreational Drug Use: No - Living Situation & Occupation Living situation: Reports: Occupation: Unemployed H&P Review of Systems - Review of Systems: Review Of Systems: See Below General: Reports: Fever, Malaise, Fatigue. Denies: Night Sweats HEENT: Reports: No Symptoms Pulmonary: Reports: Shortness of Breath, Cough. Denies: Wheezing, Pleuritic Chest Pain, Sputum, Hemoptysis Cardiovascular: Reports: No Symptoms Gastrointestinal: Reports: No Symptoms Genitourinary: Reports: No Symptoms Musculoskeletal: Reports: No Symptoms Skin: Reports: No Symptoms Psychiatric: Reports: No Symptoms Neurological: Reports: No Symptoms Hematologic/Lymphatic: Reports: No Symptoms Immunologic: Reports: No Symptoms Exam - Exam Exam: See Below - Vital Signs Vital Signs: Last Vital Signs Temp 97.7 F 11/03/20 02:30 Pulse 91 11/03/20 02:30 Resp 16 11/03/20 02:30 BP 119/87 11/03/20 02:30 Pulse Ox 94 L 11/03/20 02:30 Weight: 202 lb 14.4 oz - Exam General: Alert, Oriented HEENT: Conjunctiva Clear, EOMI Neck: Supple, Trachea Midline Lungs: Crackles (Right lower tirado) Cardiovascular: Regular Rate, Normal S1, Normal S2 GI/Abdominal Exam: Normal Bowel Sounds, Soft, Non-Tender, No Distention Extremities: Normal Inspection, No Pedal Edema Skin: Warm, Dry Neurological: Cranial Nerves Intact Neuro Extensive - Mental Status: Alert, Normal Mood/Affect Psychiatric: Normal Affect, Normal Mood - Patient Data Lab Results Last 24 hrs: Laboratory Results - last 24 hr 11/02/20 11/02/20 11/02/20 Range/Units 22:25 22:25 22:25 WBC 5.40 (3.98-10.04) K/mm3 RBC 4.10 (3.98-5.22) M/mm3 Hgb 11.7 D (11.2-15.7) gm/dl Hct 36.0 (34.1-44.9) % MCV 87.8 D (79.4-94.8) fl MCH 28.5 (25.6-32.2) pg MCHC 32.5 (32.2-35.5) g/dl RDW Std Deviation 43.5 (36.4-46.3) fL Plt Count 236 (182-369) K/mm3 MPV 11.4 (9.4-12.3) fl Neutrophils % (Manual) 56 (40-60) % Band Neutrophils % 16 H (0-10) % Lymphocytes % (Manual) 22 (20-40) % Atypical Lymphs % 0 % Monocytes % (Manual) 5 (2-10) % Eosinophils % (Manual) 0 L (0.7-5.8) % Basophils % (Manual) 1 (0.1-1.2) Platelet Estimate Adequate RBC Morph Comment Normal PT 11.1 (9.7-12.0) SECONDS INR 1.04 APTT 28.5 (21.7-31.4) SECONDS D-Dimer, Quantitative (0.19-0.50) mg/L Sodium 134 L (136-145) mEq/L Potassium 3.1 L (3.5-5.1) mEq/L Chloride 99 (98-107) mEq/L Carbon Dioxide 24 (21-32) mEq/L Anion Gap 14.1 (5-15) BUN 12 (7-18) mg/dL Creatinine 1.0 (0.55-1.02) mg/dL Est Cr Clr Drug Dosing 67.63 mL/min Estimated GFR (MDRD) 59 (>60) mL/min BUN/Creatinine Ratio 12.0 L (14-18) Glucose 98 (70-99) mg/dL Lactic Acid (0.4-2.0) mmol/L Calcium 8.3 L (8.5-10.1) mg/dL Magnesium 1.7 L (1.8-2.4) mg/dL Total Bilirubin 0.6 (0.2-1.0) mg/dL AST 21 (15-37) U/L ALT 25 (14-59) U/L Alkaline Phosphatase 88 (46-116) U/L CK-MB (CK-2) 0.6 (0-3.6) ng/ml Troponin I < 0.017 (0.00-0.056) ng/mL NT-Pro-B Natriuret Pep (0-125) pg/mL Total Protein 6.9 (6.4-8.2) g/dl Albumin 3.5 (3.4-5.0) g/dl Globulin 3.4 gm/dL Albumin/Globulin Ratio 1.0 (1-2) Urine Color (Yellow) Urine Appearance (Clear) Urine pH (5.0-8.0) Ur Specific [place] (1.005-1.030) Urine Protein (Negative) Urine Glucose (UA) (Negative) Urine Ketones (Negative) Urine Occult Blood (Negative) Urine Nitrite (Negative) Urine Bilirubin (Negative) Urine Urobilinogen (0.2-1.0) Ur Leukocyte Esterase (Negative) Urine RBC (0-5) /hpf Urine WBC (0-5) /hpf Ur Squamous Epith Cells (0-5) /hpf Urine Bacteria (FEW) /hpf Urine Mucus (FEW) /hpf 11/02/20 11/02/20 11/02/20 Range/Units 22:25 22:25 22:25 WBC (3.98-10.04) K/mm3 RBC (3.98-5.22) M/mm3 Hgb (11.2-15.7) gm/dl Hct (34.1-44.9) % MCV (79.4-94.8) fl MCH (25.6-32.2) pg MCHC (32.2-35.5) g/dl RDW Std Deviation (36.4-46.3) fL Plt Count (182-369) K/mm3 MPV (9.4-12.3) fl Neutrophils % (Manual) (40-60) % Band Neutrophils % (0-10) % Lymphocytes % (Manual) (20-40) % Atypical Lymphs % % Monocytes % (Manual) (2-10) % Eosinophils % (Manual) (0.7-5.8) % Basophils % (Manual) (0.1-1.2) Platelet Estimate RBC Morph Comment PT (9.7-12.0) SECONDS INR APTT (21.7-31.4) SECONDS D-Dimer, Quantitative 0.38 (0.19-0.50) mg/L Sodium (136-145) mEq/L Potassium (3.5-5.1) mEq/L Chloride (98-107) mEq/L Carbon Dioxide (21-32) mEq/L Anion Gap (5-15) BUN (7-18) mg/dL Creatinine (0.55-1.02) mg/dL Est Cr Clr Drug Dosing mL/min Estimated GFR (MDRD) (>60) mL/min BUN/Creatinine Ratio (14-18) Glucose (70-99) mg/dL Lactic Acid 0.6 (0.4-2.0) mmol/L Calcium (8.5-10.1) mg/dL Magnesium (1.8-2.4) mg/dL Total Bilirubin (0.2-1.0) mg/dL AST (15-37) U/L ALT (14-59) U/L Alkaline Phosphatase (46-116) U/L CK-MB (CK-2) (0-3.6) ng/ml Troponin I (0.00-0.056) ng/mL NT-Pro-B Natriuret Pep 86 (0-125) pg/mL Total Protein (6.4-8.2) g/dl Albumin (3.4-5.0) g/dl Globulin gm/dL Albumin/Globulin Ratio (1-2) Urine Color (Yellow) Urine Appearance (Clear) Urine pH (5.0-8.0) Ur Specific [place] (1.005-1.030) Urine Protein (Negative) Urine Glucose (UA) (Negative) Urine Ketones (Negative) Urine Occult Blood (Negative) Urine Nitrite (Negative) Urine Bilirubin (Negative) Urine Urobilinogen (0.2-1.0) Ur Leukocyte Esterase (Negative) Urine RBC (0-5) /hpf Urine WBC (0-5) /hpf Ur Squamous Epith Cells (0-5) /hpf Urine Bacteria (FEW) /hpf Urine Mucus (FEW) /hpf 11/03/20 Range/Units 02:04 WBC (3.98-10.04) K/mm3 RBC (3.98-5.22) M/mm3 Hgb (11.2-15.7) gm/dl Hct (34.1-44.9) % MCV (79.4-94.8) fl MCH (25.6-32.2) pg MCHC (32.2-35.5) g/dl RDW Std Deviation (36.4-46.3) fL Plt Count (182-369) K/mm3 MPV (9.4-12.3) fl Neutrophils % (Manual) (40-60) % Band Neutrophils % (0-10) % Lymphocytes % (Manual) (20-40) % Atypical Lymphs % % Monocytes % (Manual) (2-10) % Eosinophils % (Manual) (0.7-5.8) % Basophils % (Manual) (0.1-1.2) Platelet Estimate RBC Morph Comment PT (9.7-12.0) SECONDS INR APTT (21.7-31.4) SECONDS D-Dimer, Quantitative (0.19-0.50) mg/L Sodium (136-145) mEq/L Potassium (3.5-5.1) mEq/L Chloride (98-107) mEq/L Carbon Dioxide (21-32) mEq/L Anion Gap (5-15) BUN (7-18) mg/dL Creatinine (0.55-1.02) mg/dL Est Cr Clr Drug Dosing mL/min Estimated GFR (MDRD) (>60) mL/min BUN/Creatinine Ratio (14-18) Glucose (70-99) mg/dL Lactic Acid (0.4-2.0) mmol/L Calcium (8.5-10.1) mg/dL Magnesium (1.8-2.4) mg/dL Total Bilirubin (0.2-1.0) mg/dL AST (15-37) U/L ALT (14-59) U/L Alkaline Phosphatase (46-116) U/L CK-MB (CK-2) (0-3.6) ng/ml Troponin I (0.00-0.056) ng/mL NT-Pro-B Natriuret Pep (0-125) pg/mL Total Protein (6.4-8.2) g/dl Albumin (3.4-5.0) g/dl Globulin gm/dL Albumin/Globulin Ratio (1-2) Urine Color Yellow (Yellow) Urine Appearance Clear (Clear) Urine pH 6.5 (5.0-8.0) Ur Specific [place] 1.010 (1.005-1.030) Urine Protein Negative (Negative) Urine Glucose (UA) Negative (Negative) Urine Ketones Negative (Negative) Urine Occult Blood Negative (Negative) Urine Nitrite Negative (Negative) Urine Bilirubin Negative (Negative) Urine Urobilinogen 0.2 (0.2-1.0) Ur Leukocyte Esterase Trace H (Negative) Urine RBC Not seen (0-5) /hpf Urine WBC 0-5 (0-5) /hpf Ur Squamous Epith Cells Not seen (0-5) /hpf Urine Bacteria Rare (FEW) /hpf Urine Mucus Rare (FEW) /hpf Result Diagrams: 11/02/20 22:25 11/02/20 22:25 Sepsis Event Note - Evaluation Sepsis Screening Result: No Definite Risk - Focused Exam Vital Signs: Vital Signs Temp Temp Pulse Pulse Resp BP BP 11/03/20 02:30 97.7 F 91 16 119/87 11/02/20 21:14 102.5 F H 132 H 18 151/103 H Pulse Ox 11/03/20 02:30 94 L 11/02/20 21:14 95 Problem List Initiated/Reviewed/Updated: Yes Orders Last 24hrs: Active Orders 24 hr Category Date Time Status Admission Status [Patient Status] [ADT] Routine ADT 11/03/20 02:00 Active Patient Status [ADT] Routine ADT 11/03/20 07:46 Ordered Incentive Spirometry [RT Incentive Spirometry] [RC] Care 11/03/20 07:51 Ordered Q2HWA Oxygen Therapy [RC] PRN Care 11/03/20 07:46 Ordered RT Aerosol Therapy [RC] ASDIRECTED Care 11/03/20 07:48 Ordered Up ad Radha [RC] BID Care 11/03/20 03:42 Active VTE/DVT Education [RC] PER UNIT ROUTINE Care 11/03/20 07:46 Ordered Vital Signs [RC] Q4H Care 11/03/20 07:46 Ordered Regular Diet [DIET] Diet 11/03/20 Breakfast Active Chest 2V [CR] Stat Exams 11/02/20 22:03 Stop Req BASIC METABOLIC PANEL,BMP [CHEM] DAILY Lab 11/04/20 08:00 Ordered BASIC METABOLIC PANEL,BMP [CHEM] DAILY Lab 11/05/20 08:00 Ordered BASIC METABOLIC PANEL,BMP [CHEM] DAILY Lab 11/06/20 08:00 Ordered CBC WITH AUTO DIFF [HEME] DAILY Lab 11/04/20 08:00 Ordered CBC WITH AUTO DIFF [HEME] DAILY Lab 11/05/20 08:00 Ordered CBC WITH AUTO DIFF [HEME] DAILY Lab 11/06/20 08:00 Ordered CULTURE BLOOD [BC] Stat Lab 11/02/20 22:25 Received CULTURE BLOOD [BC] Stat Lab 11/02/20 22:25 Received Acetaminophen [TylenoL] Med 11/03/20 07:30 Ordered 650 mg PO Q4H PRN Albuterol/Ipratropium [DuoNeb 3.0-0.5 MG/3 ML] Med 11/03/20 07:46 Ordered 3 ml NEB Q4H PRN Azithromycin [Zithromax] 500 mg Med 11/03/20 08:00 Ordered Sodium Chloride 0.9% [Normal Saline (AdvBag)] 250 ml IV Q24H Docusate Sodium [Colace] Med 11/03/20 07:46 Ordered 100 mg PO BID PRN Enoxaparin [Lovenox] Med 11/03/20 09:00 Ordered 40 mg SUBCUT DAILY Ondansetron [Zofran] Med 11/03/20 07:46 Ordered 4 mg IV Q4H PRN cefTRIAXone [Rocephin] 1 gm Med 11/03/20 08:00 Ordered Sodium Chloride 0.9% [Normal Saline] 100 ml IV Q24H Blood Culture x2 Reflex Set [OM.PC] Stat Oth 11/02/20 22:05 Ordered Code Status [Resuscitation Status] Routine Resus Stat 11/03/20 03:41 Ordered Medication Orders Acetaminophen (Acetaminophen 325 Mg Tab) 650 mg PO Q4H PRN PRN Reason: Pain/Fever Albuterol/Ipratropium (Albuterol/Ipratropium 3.0-0.5 Mg/3 Ml Neb Soln) 3 ml NEB Q4H PRN PRN Reason: Shortness Of Breath/wheezing Docusate Sodium (Docusate Sodium 100 Mg Cap) 100 mg PO BID PRN PRN Reason: Constipation Enoxaparin Sodium (Enoxaparin 40 Mg/0.4 Ml Syringe) 40 mg SUBCUT DAILY OWEN Ceftriaxone Sodium 1 gm/ (Sodium Chloride) 100 mls @ 200 mls/hr IV Q24H OWEN Azithromycin 500 mg/ Sodium (Chloride) 250 mls @ 250 mls/hr IV Q24H OWEN Ondansetron HCl (Ondansetron 4 Mg/2 Ml Sdv) 4 mg IV Q4H PRN PRN Reason: Nausea/Vomiting Assessment/Plan Comment:: 45-year-old female with known non-Hodgkin lymphoma currently receiving Rituxan therapy every 2 months presents with bilateral pneumonia diagnosed at the walk- in clinic yesterday. 1. Bilateral multifocal pneumonia. Patient nontoxic and without sepsis physiology. Not requiring supplemental oxygen. Provide bronchodilators as needed however. Daily ambulation saturation trials. Incentive spirometry encouraged. Continue empiric antibiotics with Rocephin and azithromycin with intended transition to Augmentin at time of discharge. Follow-up chest x-ray in 1 month post discharge. Anticipate discharge tomorrow. 2. Non-Hodgkin lymphoma. Follow-up with oncology. Next Rituxan infusion to be in December. CODE STATUS: Full code. DVT prophylaxis with enoxaparin.
[2020-11-03] MEDS: Enoxaparin 40 MG/0.4 ML Syringe SUBCUT SCH (08:26)
[2020-11-03] MEDS: cefTRIAXone 1 GM in Sodium Chloride 0.9% 100 ML IV SCH (08:26)
[2020-11-03] MEDS: Acetaminophen 325 MG Tab PO PRN ×3 (08:31→20:36)
[2020-11-03] MEDS: Azithromycin 500 MG in Sodium Chloride 0.9% 250 ML IV SCH (08:58)
[2020-11-03] MEDS: Benzonatate 100 MG Cap PO PRN ×2 (10:13→18:13)
[2020-11-03] MEDS: Saccharomyces Boulardii (Probiotic) 250 MG Cap PO SCH ×2 (13:04→20:27)
[2020-11-03] MEDS ORDERED: Potassium Chloride 20 MEQ Tab.ER PO ONE (15:23)
[2020-11-03] MEDS ORDERED: Magnesium Sulfate/Water 2 GM in Premix Bag 1 BAG IV ONE (15:24)
[2020-11-03] MEDS ORDERED: Pantoprazole 40 MG Tab.CR PO SCH (20:00)
[2020-11-04] MEDS: Benzonatate 100 MG Cap PO PRN (05:05)
--- NOTE | 2020-11-04 07:26 | PCM.DCSUM1 ---
Discharge Summary - Hospital Course Free Text/Narrative:: 45-year-old female with known non-Hodgkin lymphoma currently receiving Rituxan therapy every 2 months presents with bilateral pneumonia diagnosed at the walk- in clinic of admission. 1. Bilateral multifocal pneumonia. Patient nontoxic and without sepsis physiology out her short admission. Her required supplemental oxygen. Provided bronchodilators as needed however. Relation saturation trial was negative for desats. Patient held O2 above 2% at all times at rest and with activity. Incentive spirometry encouraged. Received empiric antibiotics with Rocephin and azithromycin while in the hospital. Patient to be discharged on 12 additional days of Augmentin to complete a 14-day course. Follow-up chest x-ray in 1 month post discharge. Tessalon perles also prescribed for ongoing cough. 2. Non-Hodgkin lymphoma. Follow-up with oncology. Next Rituxan infusion to be in December. CODE STATUS: Full code. DVT prophylaxis with enoxaparin. HPI Initial Comments: History of Present Illness Initial Comments - Free Text/Narative: Patient is a 45-year-old female with a past medical history as listed below who presents to the [facility] emergency department due to a chief complaint of shortness of breath and cough. The patient is a non-Hodgkin lymphoma patient receiving steroids and Rituxan every 2 months. She presented to the walk-in clinic across the street yesterday due to 5 days of feeling unwell. She has had a worsening cough. No sputum production. No hematemesis. She had a temperature as high as 104.5 degrees within the past 5 days and has had transient fever in general. She has had a headache transiently. All has been working to break her fever as well as headaches. Denies any chest pain, pleurisy or chest pressure. No nausea or vomiting. No bowel habit changes. No difficulties with voiding. No recent sick contacts. No recent travel. Prior COVID-19 infection noted this past September without significant complication. Yesterday's evaluation in the clinic noted bilateral multifocal pneumonia. The patient was then referred to the emergency department. The patient was not requiring supplemental oxygen and did not appear toxic. It was recommended that the patient be admitted for IV antibiotics. At current time, she states that the cough is the most nagging symptom for her. She denies any loss of appetite currently. This was an issue over the past 5 days at home. Has breakfast and is eating this morning. Significant overnight events. Patient is hopeful for discharge within the next 24 to 48 hours. Chest Pain Score (Numeric/FACES): 4 - Related Data Allergies/Adverse Reactions: Allergies Allergy/AdvReac Type Severity Reaction Status Date / Time No Known Allergies Allergy Verified 11/02/20 21:18 Home Medications: Home Meds Calcium Carbonate [Calcium] 600 mg PO DAILY 09/29/20 [History] Omeprazole Magnesium [Prilosec Otc] 20 mg PO DAILY 09/29/20 [History] hydroCHLOROthiazide [Hydrochlorothiazide] 25 mg PO DAILY 09/29/20 [History] Biotin 5 mg PO DAILY 11/02/20 [History] Acetaminophen [Tylenol Extra Strength] 1,000 mg PO Q6HR PRN 11/03/20 [History] Past Medical History Cardiovascular History: Reports: Hypertension Gastrointestinal History: Reports: GERD, Other (See Below) Other Gastrointestinal History: gastric sleeve Endocrine/Metabolic History: Reports: Obesity/BMI 30+ Hematologic History: Reports: Blood Transfusion(s) Oncologic (Cancer) History: Reports: Non-Hodgkin's Lymphoma, Other (See Below) Other Oncologic History: has a port - Infectious Disease History Infectious Disease History: Reports: Chicken Pox, Novel Coronavirus - Past Surgical History Cardiovascular Surgical History: Reports: None GI Surgical History: Reports: Cholecystectomy Female Surgical History: Reports: Section Oncologic Surgical History: Reports: None - History Comment History Comment: Patient had COVID-19 illness the end of September 2020. Apparently identified to have pneumonia with sats as low as 88%. She did receive monoclonal antibody therapy through our ER and was discharged to home. She states within 3 to 4 days of receiving the monoclonal antibody she started to feel better and never was admitted to the hospital due to Covid. She felt the fatigue last a good 6 weeks. Cough lasted about 10 days. Social & Family History - Family History OBGYN: Reports: Other (See Below) Other OBGYN Family History: Mother has endometrial cancer; recently diagnosed. - Tobacco Use Tobacco Use Status *Q: Never Tobacco User Tobacco Use Within Last Twelve Months: No Second Hand Smoke Exposure: No - Caffeine Use Caffeine Use: Reports: Coffee - Alcohol Use Days Per Week of Alcohol Use: 1 Number of Drinks Per Day: 3 Total Drinks Per Week: 3 Date of Last Drink: 10/26/20 - Recreational Drug Use Recreational Drug Use: No - Living Situation & Occupation Living situation: Reports: Occupation: Unemployed H&P Review of Systems - Review of Systems: Review Of Systems: See Below General: Reports: Fever, Malaise, Fatigue. Denies: Night Sweats HEENT: Reports: No Symptoms Pulmonary: Reports: Shortness of Breath, Cough. Denies: Wheezing, Pleuritic Chest Pain, Sputum, Hemoptysis Cardiovascular: Reports: No Symptoms Gastrointestinal: Reports: No Symptoms Genitourinary: Reports: No Symptoms Musculoskeletal: Reports: No Symptoms Skin: Reports: No Symptoms Psychiatric: Reports: No Symptoms Neurological: Reports: No Symptoms Hematologic/Lymphatic: Reports: No Symptoms Immunologic: Reports: No Symptoms Exam - Exam Exam: See Below - Vital Signs Vital Signs: Last Vital Signs Temp 97.7 F 11/03/20 02:30 Pulse 91 11/03/20 02:30 Resp 16 11/03/20 02:30 BP 119/87 11/03/20 02:30 Pulse Ox 94 L 11/03/20 02:30 Weight: 202 lb 14.4 oz - Exam General: Alert, Oriented HEENT: Conjunctiva Clear, EOMI Neck: Supple, Trachea Midline Lungs: Crackles (Right lower tirado) Cardiovascular: Regular Rate, Normal S1, Normal S2 GI/Abdominal Exam: Normal Bowel Sounds, Soft, Non-Tender, No Distention Extremities: Normal Inspection, No Pedal Edema Skin: Warm, Dry Neurological: Cranial Nerves Intact Neuro Extensive - Mental Status: Alert, Normal Mood/Affect Psychiatric: Normal Affect, Normal Mood - Discharge Data Discharge Date: 11/04/20 Discharge Disposition: Home, Self-Care 01 Condition: Good - Referral to Home Health Primary Care Physician: PCP None - Patient Summary/Data Hospital Course: See above... - Patient Instructions Diet: Regular Diet as Tolerated Activity: As Tolerated Notify Provider of: Fever Other/Special Instructions: Follow-up with PCP within 1 to 2 weeks. Continue taking antibiotics as instructed. Continue taking home medications as previously instructed. Activity and diet are as tolerated. Recommend follow-up chest x-ray in 4 weeks. Follow-up with oncology as scheduled. If you experience any signs or symptoms that warranted this admission please do not hesitate to call your primary care physician, oncologist or present to an emergent care setting for an immediate evaluation. - Discharge Plan *PRESCRIPTION DRUG MONITORING PROGRAM REVIEWED*: Not Applicable *COPY OF PRESCRIPTION DRUG MONITORING REPORT IN PATIENT SHIREEN: Not Applicable Prescriptions/Med Rec: Amoxicillin/Clavulanate K [Augmentin 875-125 MG] 1 tab PO BID 12 Days #14 tablet Benzonatate 200 mg PO TID #60 capsule Home Medications: Home Meds Calcium Carbonate [Calcium] 600 mg PO DAILY 09/29/20 [History] hydroCHLOROthiazide [Hydrochlorothiazide] 25 mg PO DAILY 09/29/20 [History] Biotin 5 mg PO DAILY 11/02/20 [History] Acetaminophen [Tylenol Extra Strength] 1,000 mg PO Q6HR PRN 11/03/20 [History] Amoxicillin/Clavulanate K [Augmentin 875-125 MG] 1 tab PO BID 12 Days #14 tablet 11/04/20 [Rx] Benzonatate 200 mg PO TID #60 capsule 11/04/20 [Rx] Oxygen Therapy Mode: Room Air Patient Handouts: Community-Acquired Pneumonia, Adult, [id number], Sepsis, Self Care, Adult Forms: ED Department Discharge Referrals: Patricia Snider PA-C [Ordering Only Provider] - 11/15/20 1:30 pm (this is your check in time the appointment is at 13:45) Jace Alexander MD [Ordering Only Provider] - (follow up as scheduled.) - Discharge Summary/Plan Comment DC Time >30 min.: Yes - General Info Date of Service: 11/04/20 Admission Dx/Problem (Free Text: Admission Diagnosis/Problem Admission Diagnosis/Problem Bilateral pneumonia Subjective Update: No acute events overnight. No specific new nursing concerns. Patient without fever. Continues to have cough. Patient requesting outpatient Tessalon Perles. Patient nontoxic and without sepsis physiology. Patient has no specific complaints this morning and is looking forward to going home. Functional Status: Reports: Tolerating Diet - Review of Systems General: Reports: No Symptoms HEENT: Reports: No Symptoms Pulmonary: Reports: Cough. Denies: Shortness of Breath, Pleuritic Chest Pain, Sputum, Hemoptysis, Wheezing Cardiovascular: Reports: No Symptoms Gastrointestinal: Reports: No Symptoms Musculoskeletal: Reports: No Symptoms Neurological: Reports: No Symptoms - Patient Data Vitals - Most Recent: Last Vital Signs Temp 98.8 F 11/03/20 20:31 Pulse 96 11/04/20 05:07 Resp 20 11/04/20 05:07 BP 120/86 11/04/20 05:07 Pulse Ox 92 L 11/04/20 05:07 Weight - Most Recent: 202 lb 4.8 oz I&O - Last 24 hours: Intake & Output 11/03/20 11/04/20 11/04/20 22:59 06:59 14:59 Intake Total 690 500 Balance 690 500 [id number] Results - Last 24 hrs: Microbiology 11/02/20 22:25 Aerobic Blood Culture - Preliminary Blood - Venous - Lab Draw NO GROWTH AFTER 1 DAY Anaerobic Blood Culture - Preliminary NO GROWTH AFTER 1 DAY 11/02/20 22:25 Aerobic Blood Culture - Preliminary Blood - Venous NO GROWTH AFTER 1 DAY Anaerobic Blood Culture - Preliminary NO GROWTH AFTER 1 DAY Med Orders - Current: Current Medications Acetaminophen (Acetaminophen 325 Mg Tab) 650 mg PO Q4H PRN PRN Reason: Pain/Fever Last Admin: 11/03/20 20:36 Dose: 650 mg Documented by: Albuterol/Ipratropium (Albuterol/Ipratropium 3.0-0.5 Mg/3 Ml Neb Soln) 3 ml NEB Q4HRRT PRN PRN Reason: Shortness Of Breath/wheezing Benzonatate (Benzonatate 100 Mg Cap) 200 mg PO Q8H PRN PRN Reason: Cough Last Admin: 11/04/20 05:05 Dose: 200 mg Documented by: Docusate Sodium (Docusate Sodium 100 Mg Cap) 100 mg PO BID PRN PRN Reason: Constipation Last Admin: 11/03/20 08:27 Dose: 100 mg Documented by: Enoxaparin Sodium (Enoxaparin 40 Mg/0.4 Ml Syringe) 40 mg SUBCUT DAILY [facility] Last Admin: 11/03/20 08:26 Dose: 40 mg Documented by: Ceftriaxone Sodium 1 gm/ (Sodium Chloride) 100 mls @ 200 mls/hr IV Q24H [facility] Last Admin: 11/03/20 08:26 Dose: 200 mls/hr Documented by: Azithromycin 500 mg/ Sodium (Chloride) 250 mls @ 250 mls/hr IV Q24H [facility] Last Admin: 11/03/20 08:58 Dose: 250 mls/hr Documented by: Ondansetron HCl (Ondansetron 4 Mg/2 Ml Sdv) 4 mg IV Q4H PRN PRN Reason: Nausea/Vomiting Pantoprazole Sodium (Pantoprazole 40 Mg Tab.Cr) 40 mg PO Q24H [facility] Last Admin: 11/03/20 20:27 Dose: 40 mg Documented by: Saccharomyces Boulardii (Saccharomyces Boulardii (Probiotic) 250 Mg Cap) 250 mg PO BID [facility] Last Admin: 11/03/20 20:27 Dose: 250 mg Documented by: Discontinued Medications Acetaminophen (Acetaminophen 325 Mg Tab) 975 mg PO ONETIME ONE Stop: 11/02/20 22:23 Last Admin: 11/02/20 23:00 Dose: 975 mg Documented by: Dextrose/Sodium Chloride (Dextrose 5%-Normal Saline) 1,000 mls @ 500 mls/hr IV ASDIRECTED [facility] Last Admin: 11/02/20 23:01 Dose: 500 mls/hr Documented by: Ceftriaxone Sodium 2 gm/ (Sodium Chloride) 100 mls @ 200 mls/hr IV ONETIME ONE Stop: 11/02/20 23:00 Last Admin: 11/02/20 23:01 Dose: 200 mls/hr Documented by: Azithromycin 500 mg/ Sodium (Chloride) 250 mls @ 250 mls/hr IV ONETIME ONE Stop: 11/03/20 01:39 Last Admin: 11/03/20 00:55 Dose: 250 mls/hr Documented by: Dextrose/Sodium Chloride (Dextrose 5%-Normal Saline) 1,000 mls @ 100 mls/hr IV ASDIRECTED [facility] Magnesium Sulfate 2 gm/ Premix 50 mls @ 12.5 mls/hr IV ONETIME ONE Stop: 11/03/20 19:23 Last Admin: 11/03/20 15:59 Dose: 12.5 mls/hr Documented by: Potassium Chloride (Potassium Chloride 20 Meq Tab.Er) 40 meq PO ONETIME ONE Stop: 11/03/20 15:24 Last Admin: 11/03/20 15:58 Dose: 40 meq Documented by: - Exam General: Reports: Alert Neck: Reports: Supple Lungs: Reports: Decreased Breath Sounds, Rales (Right lower tirado.) Cardiovascular: Reports: Regular Rate, Regular Rhythm GI/Abdominal Exam: Normal Bowel Sounds, Soft, Non-Tender Extremities: Normal Inspection, No Pedal Edema Skin: Reports: Warm, Dry Psy/Mental Status: Reports: Normal Mood
[2020-11-04] MEDS: Azithromycin 500 MG in Sodium Chloride 0.9% 250 ML IV SCH (08:48)
[2020-11-04] MEDS: cefTRIAXone 1 GM in Sodium Chloride 0.9% 100 ML IV SCH (08:48)
[2020-11-04] MEDS: Enoxaparin 40 MG/0.4 ML Syringe SUBCUT SCH (08:49)
[2020-11-04] MEDS: Saccharomyces Boulardii (Probiotic) 250 MG Cap PO SCH (08:49)
[2020-11-04] MEDS ORDERED: Azithromycin 500 MG AdvVial ONE (09:06)
[2020-11-04] MEDS ORDERED: cefTRIAXone 1 GM AdvVial IV ONE (09:07)
[2020-11-04] MEDS ORDERED: guaiFENesin/Dextromethorphan 100-10 MG/5 ML Soln 5 ML Cup PO STA (10:38)
== END 2020-11-04 12:30 | disposition home or self-care (01) | DRG 139 ==
LOC: JD.ED 20:57 → JD.MS 11-03 02:11
PROVIDERS: ADMIT Hospitalist; ATTEND Hospitalist
DX: J18.9 Pneumonia, unspecified organism (principal); C85.90 Non-Hodgkin lymphoma, unspecified, unspecified site; E66.9 Obesity, unspecified; K21.9 Gastro-esophageal reflux disease without esophagitis; I10 Essential (primary) hypertension; Z86.16 Personal history of COVID-19; Z90.49 Acquired absence of other specified parts of digestive tract; Z79.899 Other long term (current) drug therapy; Z68.31 Body mass index [BMI] 31.0-31.9, adult
CPT/HCPCS: 36415; 36556; 80048; 80053; 81001; 82553; 83605; 83735; 83880; 84484; 85007; 85025; 85027; 85379; 85610; 85730; 87040; 93005; 93010; 94640; 96365; 96367; 99222; 99239; 99285; 99285-25; A9270-GY; J0456; J0696; J1642; J1650; J2405; J3475; J7042; J7050; J7620-GY

== ENCOUNTER 2022-10-18 19:20 | Emergency (ER) | payer BC ==
[2022-10-18] MEDS ORDERED: Sodium Chloride 0.9% 10 ML Syringe FLUSH PRN (20:10)
[2022-10-18] MEDS ORDERED: Iopamidol 755 Mg/ML 100 ML Bottle IVPUSH ONE (20:33)
[2022-10-18] MEDS ORDERED: Sodium Chloride 0.9% 10 ML Syringe FLUSH ONE (20:33)
[2022-10-18] MEDS ORDERED: Sodium Chloride 0.9% 100 ML IV SCH (20:45)
[2022-10-18 21:12] LABS: CORONAVIRUS COVID-19 NAA NEGATIVE (NEGATIVE); INFLUENZA A NAA NEGATIVE (NEGATIVE); RESPIRATORY SYNCYTIAL VIR NAA NEGATIVE (NEGATIVE)
[2022-10-18 21:30] LABS: A/G RATIO 1.1 (1-2); ALBUMIN 3.4 g/dl (3.4-5.0); ANION GAP 12.3 (5-15); BILIRUBIN TOTAL 0.7 mg/dL (0.2-1.0); CALCIUM 8.5 mg/dL (8.5-10.1); CREATININE 0.9 mg/dL (0.55-1.02); EST CRCL DRUG DOSING (CG) 73.53 mL/min; POTASSIUM,K 3.3 mEq/L (3.5-5.1); PROTEIN TOTAL,TP 6.5 g/dl (6.4-8.2)
[2022-10-18] MEDS ORDERED: Azithromycin 250 MG Tab PO ONE (21:42)
[2022-10-18] MEDS ORDERED: Albuterol 6.7 GM Inhaler INH ONE (21:43)
== END 2022-10-18 22:12 | disposition home or self-care (01) ==
LOC: JD.ED 19:20
DX: J18.9 Pneumonia, unspecified organism (principal); I10 Essential (primary) hypertension; K21.9 Gastro-esophageal reflux disease without esophagitis; E66.9 Obesity, unspecified; Z68.34 Body mass index [BMI] 34.0-34.9, adult; Z79.899 Other long term (current) drug therapy; Z86.16 Personal history of COVID-19; Z20.822 Contact with and (suspected) exposure to COVID-19
CPT/HCPCS: 0241U; 36415; 71275; 80053; 84484; 93005; 94640; 99285; A9270; J3490; Q9967; 93010; 99284